=== PATIENT | male | born 1975 | race Hispanic/Latino ===

== ENCOUNTER 2023-04-06 09:23 | Emergency (ER) | payer BC, SELFPAY ==
[2023-04-06 09:28] VITALS: BP 133/88; PULSE 97; RESP 20; TEMP 37.3; O2SAT 100
[2023-04-06 09:38] VITALS: O2SAT 97
--- NOTE | 2023-04-06 10:01 | ED.GENADULT ---
HPI - General Adult General Chief complaint: Upper Respiratory Infection Stated complaint: sore throat Time Seen by Provider: 04/06/23 09:27 History of Present Illness HPI narrative: 47-year-old male presented to the emergency department for evaluation sore throat. Patient states he has had some associated cough but denies any associated fever. Related Data Allergies Allergy/AdvReac Type Severity Reaction Status Date / Time No Known Allergies Allergy Verified 04/06/23 09:30 Review of Systems Review of Systems: All systems reviewed & are unremarkable except as noted in HPI and below Exam Narrative: APPEARANCE: Well appearing, no pain, no distress, well-nourished. HEAD: normocephalic, atraumatic. EYES: PERRLA/EOMI, conjunctivae clear. NOSE: Normal no drainage EARS:TMS clear with good light reflex. THROAT: Posterior pharynx erythema with no edema or asymmetry or exudate NECK: Supple. No adenopathy, no masses. RESPIRATORY: Airway patent, respirations nonlabored. Clear to auscultation bilaterally, no rales, rhonchi, wheezing. CARDIOVASCULAR: Regular rate and rhythm without murmurs rubs or gallops. ABDOMINAL: Soft, nontender, nondistended, normal bowel sounds MUSCULOSKELETAL: Moves all extremities. Strength/ROM intact, No edema, No calf tenderness. NEURO: Alert. Cranial nerves II through XII intact. Good gait. Good coordination SKIN: Warm, dry. Normal Color Course Course Emergency Course: 47-year-old male presenting emergency department for evaluation sore throat. Patient was negative for strep. did test positive for COVID. Patient was updated on the results of the workup. Vital Signs Vital signs: Vital Signs Temperature 99.1 F 04/06/23 09:28 Pulse Rate 97 04/06/23 09:28 Respiratory Rate 20 04/06/23 09:28 Blood Pressure 133/88 04/06/23 09:28 Pulse Oximetry 100 04/06/23 09:28 Oxygen Delivery Room Air 04/06/23 09:28 Temperature 99.3 F 04/06/23 10:40 Pulse Rate 83 04/06/23 10:40 Respiratory Rate 19 04/06/23 10:40 Blood Pressure 128/76 04/06/23 10:40 Pulse Oximetry 99 04/06/23 10:40 Oxygen Delivery Room Air 04/06/23 09:38 Medical Decision Making Differential Diagnosis Differential Diagnosis: COVID, RSV, influenza, strep Vital Signs Vital Signs: Vital Signs Temperature 99.1 F 04/06/23 09:28 Pulse Rate 97 04/06/23 09:28 Respiratory Rate 20 04/06/23 09:28 Blood Pressure 133/88 04/06/23 09:28 Pulse Oximetry 100 04/06/23 09:28 Oxygen Delivery Room Air 04/06/23 09:28 Temperature 99.3 F 04/06/23 10:40 Pulse Rate 83 04/06/23 10:40 Respiratory Rate 19 04/06/23 10:40 Blood Pressure 128/76 04/06/23 10:40 Pulse Oximetry 99 04/06/23 10:40 Oxygen Delivery Room Air 04/06/23 09:38 Lab Data Labs: Lab Results 04/06/23 Range/Units 09:34 Influenza A (RT-PCR) Negative (Negative) Influenza B (RT-PCR) Negative (Negative) RSV (RT-PCR) Negative (Negative) SARS-CoV-2 RNA (RT-PCR) Positive A (Negative) Group A Strep (PCR) Not detected (Negative) Discharge Plan Discharge Clinical Impression: Pharyngitis, COVID Patient Disposition: Home, Self-Care Condition: Stable Instructions: Antibiotic Form, Pharyngitis (ED), COVID-19 (Coronavirus Disease 2019) (ED) Additional Instructions: You did test positive for COVID. tylenol and ibuprofen for pain control. Have close follow-up with her primary care physician. If you have any worsening symptoms then please call or return to the emergency department. Follow-up/Referrals: PHYSICIAN,[facility] [Primary Care Provider] -
[2023-04-06 10:05] LABS: Strep Group A RT-PCR NOT DETECTED (Negative)
[2023-04-06 10:17] LABS: Influenza A QL RT-PCR Negative (Negative); Influenza B QL RT-PCR Negative (Negative); RSV RNA, RT-PCR Negative (Negative); SARS-CoV-2 RNA PCR Positive (Negative)
[2023-04-06] MEDS: ACETAMINOPHEN 325 MG TABLET 650 MG PO (10:33)
[2023-04-06] MEDS: KETOROLAC 30 MG/ML VIAL (*BKC) IM (10:34)
[2023-04-06 10:40] VITALS: BP 128/76; PULSE 83; RESP 19; TEMP 37.4; O2SAT 99
== END 2023-04-06 10:43 | disposition home or self-care (01) ==
PROVIDERS: Emergency Provider Emergency Medicine
DX: U07.1 COVID-19 (principal); J02.9 Acute pharyngitis, unspecified
CPT/HCPCS: 87637; 87651; 96372; 99283; A9270; J1885